=== PATIENT | male | born 1945 | race Caucasian/White ===

== ENCOUNTER 2020-01-03 07:25 | Emergency (ER) | payer MEDICARE ==
--- NOTE | 2020-01-03 08:08 | Emergency Department Report ---
ED CPR HPI - General Chief Complaint: Cardiac Arrest/CPR Stated Complaint: CARDIAC ARREST Time Seen by Provider: 01/03/20 07:46 Source: EMS (Verbal report received from emergency medical services. EMS documentation not available at time of chart dictation ), RN notes reviewed, old records reviewed Mode of arrival: Stretcher Limitations: Altered Mental Status, Physical Limitation - History of Present Illness Initial Comments: Patient is an unfortunate 74-year-old gentleman, brought to the hospital by emergency medical services, as out of hospital cardiac arrest. Patient's last known well time is sometime last night; exact last known well time is not known. Apparently, patient was found down today by family, on the floor, for uncertain duration of time, and uncertain mechanism. They initiated CPR as per verbal report from EMS. Upon EMS arrival, the patient does not have a pulse, and is not breathing, and has a GCS of 15. EMS intubated the patient in the field, provided high-quality CPR, and standard ACLS interventions, including a few shocks, for possible shockable rhythm, and standard ACLS medications. Upon arrival to the emergency room, the patient is in a coma, pupils are fixed, and do not react to light, and he continues to have a GCS of 3. Standard ACLS interventions are continued, and the patient continues to receive high-quality CPR. After prolonged resuscitation, no pulses are obtained, bedside cardiac ultrasound demonstrates no coordinated cardiac activity, ventricular standstill is noted, no pulses are felt on physical exam, or in Doppler interrogation of the femoral artery, or an exam of the carotid artery. Resuscitation efforts are therefore terminated secondary to patient's . MD Complaint: other -: unknown Place: home Bystander CPR Performed: Yes Initial Findings in the Field: unresponsive Treatments Prior to Arrival: intubation, chest compressions, epinephrine mgs # - Related Data Previous Rx's Medication Instructions Recorded Last Taken Type Albuterol INH(or & Nicu Only) 2 puff IH QID PRN #1 can 11/21/17 Unknown Rx [ProAir HFA Inhaler] Furosemide [Lasix] 20 mg PO QDAY #30 tablet 11/21/17 Unknown Rx Metoprolol Tartrate 25 mg PO DAILY #30 tablet 11/21/17 Unknown Rx Potassium Chloride 10 meq PO QDAY #30 capsule.er 11/21/17 Unknown Rx levoFLOXacin [Levaquin TAB] 500 mg PO QDAY #7 tablet 11/21/17 Unknown Rx lisinopriL [Zestril TAB] 10 mg PO QDAY #30 tablet 11/21/17 Unknown Rx Allergies Allergy/AdvReac Type Severity Reaction Status Date / Time No Known Allergies Allergy Unverified 11/18/17 17:37 ED Review of Systems ROS: Stated complaint: CARDIAC ARREST Other details as noted in HPI Comment: Unobtainable due to pts medical conditions ED Past Medical Hx - Past Medical History Hx Hypertension: Yes Hx Congestive Heart Failure: No Hx Diabetes: No Hx Asthma: No Hx COPD: No Additional medical history: Congestive heart failure - Social History Smoking Status: Never Smoker - Medications Home Medications: Home Medications Medication Instructions Recorded Confirmed Last Taken Type Albuterol INH(or & Nicu Only) 2 puff IH QID PRN #1 can 11/21/17 Unknown Rx [ProAir HFA Inhaler] Furosemide [Lasix] 20 mg PO QDAY #30 tablet 11/21/17 Unknown Rx Metoprolol Tartrate 25 mg PO DAILY #30 tablet 11/21/17 Unknown Rx Potassium Chloride 10 meq PO QDAY #30 capsule.er 11/21/17 Unknown Rx levoFLOXacin [Levaquin TAB] 500 mg PO QDAY #7 tablet 11/21/17 Unknown Rx lisinopriL [Zestril TAB] 10 mg PO QDAY #30 tablet 11/21/17 Unknown Rx ED Physical Exam - General Limitations: Altered Mental Status General appearance: obtunded, other (Intubated, GCS of 3, nonverbal) - Eye Eye exam: Present: other (Pupils dilated, fixed, and do not react to light) - ENT ENT exam: Present: normal external ear exam, other (Endotracheal tube noted in the oropharynx) - Neck Neck exam: Present: normal inspection - Respiratory Respiratory exam: Present: other (No breath sounds unless [id number] ventilation is applied) - Cardiovascular Cardiovascular Exam: Absent: regular rate (The patient is pulseless) - GI/Abdominal GI/Abdominal exam: Present: soft - exam: Present: normal inspection External exam: Present: normal external exam - Extremities Exam Extremities exam: Present: normal inspection - Neurological Exam Neurological exam: Present: other (GCS of 3, nonverbal) - Psychiatric Psychiatric exam: Present: other (Patient is nonverbal) - Skin Skin exam: Present: dry ED Medical Decision Making - Medical Decision Making Differential diagnosis, including but not limited to: Intracranial hemorrhage, pulmonary embolism, acute coronary syndrome, ventricular fibrillation, malignant arrhythmia, electrolyte derangement Critical care attestation.: If time is entered above; I have spent that time in minutes in the direct care of this critically ill patient, excluding procedure time. ED Disposition Clinical Impression: Cardiac arrest Disposition: DC-[id number] Is pt being admited?: No Does the pt Need Aspirin: No Condition: Undetermined
[2020-01-03 08:28] VITALS: BP 0/0
[2020-01-03] MEDS ORDERED: CALCIUM CHLORIDE 1,000 MG/10 ML SYRINGE IV ONE (20:20)
[2020-01-03] MEDS ORDERED: EPINEPHrine 1:10,000 1 MG/10 ML SYRINGE ONE (20:20)
[2020-01-03] MEDS ORDERED: MAGNESIUM SULFATE 1 GM/2ML (4 MEQ/1ML) INJ ONE (20:20)
[2020-01-03] MEDS ORDERED: AMIODARONE 150 MG/3 ML INJ IV ONE (20:20)
== END 2020-01-03 12:44 ==
LOC: ED 07:25
DX: I46.9 Cardiac arrest, cause unspecified (principal); I11.0 Hypertensive heart disease with heart failure; I50.9 Heart failure, unspecified; E78.5 Hyperlipidemia, unspecified; Z79.899 Other long term (current) drug therapy
CPT/HCPCS: 82962; 92950; 99285; J0171; J0282; J3475